=== PATIENT | female | born 1985 | race African-American/Black ===

== ENCOUNTER 2023-07-30 21:05 | Inpatient (IN) | payer OTHER ==
[2023-07-30 22:07] VITALS: BMI 42.9
[2023-07-30 22:38] LABS: BASO % 0.1 % (0-2.0); EOS % 1.7 % (0-4.5); HEMATOCRIT 32.3 % (32.4-45.2); HEMOGLOBIN 10.1 GM/dL (10.7-15.3); MCH 26.8 pg (25.7-33.7); MCHC 31.2 g/dl (32.0-36.0); MEAN CELL VOLUME 86.1 fl (80-96); MEAN PLT VOLUME 8.9 fl (7.5-11.1); MONO % 8.8 % (3.8-10.2); NEUT % 62.4 % (42.8-82.8); PLATELET COUNT 469 10^3/uL (134-434); RBC 3.75 M/mm3 (3.60-5.2); RDW 14.3 % (11.6-15.6); WHITE BLOOD COUNT 7.9 K/mm3 (4.0-10.0)
[2023-07-30 22:46] LABS: INR 0.91 (0.83-1.09); PROTHROMBIN TIME (PATIENT) 10.6 SEC (9.7-13.0)
[2023-07-30 22:49] LABS: ACTIVATED PTT 25.9 SECONDS (25.2-36.5)
[2023-07-30] MEDS ORDERED: CITRIC ACID/SODIUM CITRATE 30 ML UNIT-DOSE CUP PO ONE (22:52)
[2023-07-30] MEDS ORDERED: morphine SULFATE/PF 1 MG/2 ML (2cc Syringe - QUVA) ONE (22:53)
[2023-07-30] MEDS ORDERED: FENTANYL CITRATE/PF 50 MCG/ML VIAL ONE (22:53)
[2023-07-30] MEDS ORDERED: ELECTROLYTE-148 SOLN 1,000 ML IV SCH ×2 (23:00)
[2023-07-30] MEDS ORDERED: ONDANSETRON 4 MG/2 ML VIAL ONE (23:11)
[2023-07-30] MEDS ORDERED: METOCLOPRAMIDE HCL INJECTION 10 MG/2 ML VIAL ONE (23:11)
[2023-07-30 23:13] LABS: POTASSIUM 4.3 mmol/L (3.5-5.1)
[2023-07-30 23:14] LABS: CALCIUM 9.4 mg/dL (8.5-10.1)
[2023-07-30 23:18] LABS: CREATININE 0.7 mg/dL (0.55-1.3)
[2023-07-31] MEDS ORDERED: ACETAMINOPHEN 325 MG TABLET (FP) PO PRN ×2 (00:11→00:12)
[2023-07-31] MEDS ORDERED: IBUPROFEN 600 MG TABLET (FP) PO PRN (00:11)
[2023-07-31] MEDS ORDERED: ONDANSETRON 4 MG/2 ML VIAL IVPUSH PRN (00:11)
[2023-07-31] MEDS ORDERED: METHYLERGONOVINE MALEATE 0.2 MG/1 ML AMP IM PRN (00:12)
[2023-07-31] MEDS ORDERED: IBUPROFEN 800 MG/8 ML IJ IVPB PRN (00:12)
[2023-07-31] MEDS: OXYTOCIN 20 UNITS in 0.9% NS 20 UNIT/1,000 ML INFUS.BAG IV SCH ×2 (01:45→09:52)
[2023-07-31] MEDS ORDERED: OXYTOCIN 20 UNITS in 0.9% NS 20 UNIT/1,000 ML INFUS.BAG IV ONE (02:09)
[2023-07-31] MEDS ORDERED: ACETAMINOPHEN INJECTION 100 ML IVPB ONE (02:12)
[2023-07-31] MEDS: ACETAMINOPHEN 1000 MG/100 ML BAG IVPB PRN ×2 (02:15→17:10)
[2023-07-31 06:19] LABS: BASO % 0.3 % (0-2.0); EOS % 0.1 % (0-4.5); HEMATOCRIT 32.4 % (32.4-45.2); HEMOGLOBIN 10.3 GM/dL (10.7-15.3); LYMPH % 9.7 % (8-40); MCH 27.4 pg (25.7-33.7); MCHC 31.7 g/dl (32.0-36.0); MEAN CELL VOLUME 86.4 fl (80-96); MEAN PLT VOLUME 9.1 fl (7.5-11.1); MONO % 2.8 % (3.8-10.2); NEUT % 87.1 % (42.8-82.8); PLATELET COUNT 476 10^3/uL (134-434); RBC 3.75 M/mm3 (3.60-5.2); RDW 14.1 % (11.6-15.6); WHITE BLOOD COUNT 16.3 K/mm3 (4.0-10.0)
[2023-07-31] MEDS: FERROUS SO4 325 MG TABLET (FP) PO SCH (09:52)
[2023-07-31] MEDS: PRENATAL VITAMINS W/ FOLIC ACID TABLET (FP) PO SCH (09:52)
[2023-07-31] MEDS ORDERED: oxyCODONE HCL 5 MG TABLET PO PRN (12:13)
[2023-07-31] MEDS: SENNOSIDES/DOCUSATE COMBO (SENNA PLUS) TABLET (UD) PO PRN (23:21)
[2023-07-31] MEDS: SIMETHICONE 80 MG TAB.CHEW (FP) PO PRN (23:21)
[2023-07-31] MEDS: IBUPROFEN 600 MG TABLET (FP) PO PRN (23:22)
[2023-08-01] MEDS ORDERED: BISACODYL 10 MG SUPP.RECT RC PRN (00:13)
[2023-08-01] MEDS: IBUPROFEN 600 MG TABLET (FP) PO PRN (08:35)
[2023-08-01] MEDS: PRENATAL VITAMINS W/ FOLIC ACID TABLET (FP) PO SCH (11:00)
[2023-08-01] MEDS: FERROUS SO4 325 MG TABLET (FP) PO SCH (11:00)
[2023-08-01] MEDS: oxyCODONE HCL 5 MG TABLET PO PRN ×2 (12:29→19:59)
[2023-08-01] MEDS: SIMETHICONE 80 MG TAB.CHEW (FP) PO PRN (19:58)
[2023-08-01] MEDS: SENNOSIDES/DOCUSATE COMBO (SENNA PLUS) TABLET (UD) PO PRN (19:59)
[2023-08-01 21:42] VITALS: RESP 18
[2023-08-02] MEDS: IBUPROFEN 600 MG TABLET (FP) PO PRN (00:11)
[2023-08-02] MEDS: FERROUS SO4 325 MG TABLET (FP) PO SCH (09:07)
[2023-08-02] MEDS: SIMETHICONE 80 MG TAB.CHEW (FP) PO PRN (09:07)
[2023-08-02] MEDS: PRENATAL VITAMINS W/ FOLIC ACID TABLET (FP) PO SCH (09:08)
[2023-08-02 10:05] VITALS: BP 125/82; PULSE 104; TEMP 98.3
== END 2023-08-02 18:13 | disposition home or self-care (01) | DRG 540 ==
LOC: JLDR 21:05 → J3W 07-31 02:11
PROVIDERS: ADMIT Obstetrics & Gynecology; ATTEND Obstetrics & Gynecology
PROC: 10D00Z1 Extraction of Products of Conception, Low, Open Approach (ICD-10-PCS; principal; 2023-07-30)
DX: O32.8XX0 Maternal care for other malpresentation of fetus, not applicable or unspecified (principal); O42.02 Full-term premature rupture of membranes, onset of labor within 24 hours of rupture; Z3A.38 38 weeks gestation of pregnancy; Z37.0 Single live birth
CPT/HCPCS: 36415; 80048; 85025; 85610; 85730; 86780; 86850; 86900; 86901; 88307-TC